=== PATIENT | female | born 1960 | race Caucasian/White ===

== ENCOUNTER 2019-11-24 14:03 | Outpatient (CLI) | payer OTHER, SELFPAY ==
--- NOTE | 2019-11-24 14:58 | MR_ITS ---
WS: [id number] MRI BRAIN WITH AND WITHOUT CONTRAST HISTORY: EPISODE OF TRANSIENT NEUROLOGIC SYMPTOMS COMPARISON: None available. TECHNIQUE: Multiplanar imaging performed through the brain with Prohance 13 ml's IV. No acute infarcts are seen. Dinh-white matter differentiation is well preserved. There are a few scat tered T2 and FLAIR signal hyperintensity from chronic ischemic disease. None of these areas enhance. No susceptibility artifacts or prior lacunar infarcts. Ventricles and extra-axial spaces are normal. Clivus and pituitary gland are normal. Small pineal cyst measures 4.4 mm in diameter. Mild enhancemen t of the wall of the pineal cyst. Visualized posterior fossa and brainstem are also normal. No masses are identified. There is a venous angioma in the RIGHT temporal lobe. Dural venous sinuses are normal. Paranasal sinuses: Well aerated with no significant disease. Mastoid air cells: Normal. Calvarium and scalp: Normal. MR/MR head wo/w con [id number] IMPRESSION: 1. Mild chronic microvascular ischemic disease. 2. 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 3. No acute infarct or hemorrhage. 4. RIGHT temporal lobe venous angioma.
== END 2019-11-24 14:04 | disposition home or self-care (01) ==
PROVIDERS: Family Provider Family Medicine; PCP Family Medicine; Visit Provider Family Medicine
DX: R29.90 Unspecified symptoms and signs involving the nervous system (principal); I99.8 Other disorder of circulatory system; D35.4 Benign neoplasm of pineal gland; Q28.3 Other malformations of cerebral vessels
CPT/HCPCS: 70553; A9579

== ENCOUNTER 2020-08-05 11:21 | Outpatient (CLI) | payer OTHER, SELFPAY ==
--- NOTE | 2020-08-05 11:30 | MM_ITS ---
WS: [id number] BILATERAL SCREENING MAMMOGRAM WITH PIERRE DISPLACEMENT VIEWS. CAD PERFORMED. HISTORY: SCREENING COMPARISON: 01/11/2012 Bilateral craniocaudal and mediolateral like views are performed. Pierre displacement views in CC and MLO projection also performed. Breasts composition: There are scattered areas of fibroglandular density. Implants are retropectoral and intact. No suspicious masses or calcifications. MM/[place] [id number] IMPRESSION: BI-RADS: 2-Benign FOLLOW-UP: 1 Year Follow-up
== END 2020-08-05 11:22 | disposition home or self-care (01) ==
LOC: RADSHAW 11:25
PROVIDERS: PCP Family Medicine; Visit Provider Plastic Surgery
DX: Z12.31 Encounter for screening mammogram for malignant neoplasm of breast (principal)
CPT/HCPCS: 77067

== ENCOUNTER → 2022-03-11 15:08 | Outpatient (BNVA) | payer OTHER, SELFPAY | PROVIDERS: PCP Family Medicine; Visit Provider Internal Medicine Cardiovascular Disease | DX: R07.89 Other chest pain (principal); R06.02 Shortness of breath; Z87.891 Personal history of nicotine dependence; Z82.49 Family history of ischemic heart disease and other diseases of the circulatory system | CPT/HCPCS: 93005; 99204 ==

== ENCOUNTER 2022-04-06 10:51 | Outpatient (CLI) | payer OTHER, SELFPAY ==
[2022-04-06 11:03] VITALS: BMI 23.3
--- NOTE | 2022-04-06 11:12 | ECG_ITS ---
[facility] Test Date: 2022-04-06 Pat Name: Emma Yee Department: Room: Gender: Female Finished Stock Inspector: Francine Roman : 1960 Requested By: Bonny Gatica Order Number: [id number] Claudia MD: Bonny Gatica M.D. Interpretive Statements NAME OF STUDY: TREADMILL STRESS ECHOCARDIOGRAM INDICATION: Chest Pain, PROCEDURE: At the baseline, the patient's blood pressure was 115/77 with a heart rate of 64. The baseline electrocardiogram showed normal sinus rhythm with normal ST-Ts. Poor R wave progression. The patient exercised for 5 minutes and 53 seconds on a standard Juan protocol. Patient attained a maximum heart rate of 145 beats per minute(90% of the maximum predicted heart rate) with a blood pressure at the peak exercise of 178/75 mm Hg. The EKG at the peak exercise revealed no significant changes. Patient did not have any chest pain or any significant EKG changes with the exercise During the recovery phase, there were no new changes. Blood pressure at the end of the recovery phase was 124/70 mm Hg with a heart rate of 78 per minute. Echocardiographic pictures were taken at the baseline, immediately following the peak exercise and during the recovery phase. CONCLUSION: 1. No significant EKG changes with the treadmill exercise 2. No exercise-induced chest pain or cardiac arrhythmia 3. Impaired exercise tolerance, attained a maximum of 7 METs 4. Please see separate report for the echocardiographic response to exercise. Electronically Signed On 04-07-2022 19:53:38 CDT by Bonny Gatica M.D. [email or web address]
--- NOTE | 2022-04-06 11:13 | USCV_ITS ---
Stress Echo Emma Yee Age: 61 Gender: F : 1960 Exam Date: 04/06/2022 12:12 Ordering Phys: Bonny Gatica MD ([email or web address]) Technologist: Polo Brody Exam Location: [facility] [place] Indication: cp Rhythm: Sinus Patient History: Chest pain Cardiac Medications: NONE Medications in past 24 hours: Contrast: Stress Results Protocol: Juan Total dose(mL): Exercise Duration (min:sec): 5:50 METS: 7 Resting HR: 60 Resting BP: 115 / 77 Peak HR: 145 Peak BP: 185 / 88 Max Predicted HR: 160 91 % Max Predicted HR Target HR: 136 Double Product: 34484 Stress Summary: The patient's target heart rate was achieved BP Response: Normal Reason for Termination: Maximal effort/unable to continue Cardiac Symptoms: None ECG Analysis Resting ECG: Please see separate report Stress ECG: Please see separate report Arrhythmia: Please see separate report MEASUREMENTS (Male/Female) Normal Values FINDINGS The baseline echocardiogram revealing normal LV size and ejection fraction 55%. Segmental wall motion analysis revealing no gross wall motion normalities. The left atrium appears to be mildly dilated. No pericardial effusion. At the peak exercise, there was good augmentation of all the segments with no exercise-induced wall motion normalities. During the recovery, the echocardiogram findings were back to the baseline CONCLUSIONS 1. Normal echocardiographic response to exercise 2. No significant coronary ischemia, based on the above findings Dr Bonny Gatica MD [facility] (Electronically Signed) Final Date: 07 April 2022 07:55 S
[2022-04-06 12:28] VITALS: BP 124/70; PULSE 78
== END 2022-04-06 10:52 | disposition home or self-care (01) ==
LOC: CDL 10:53
PROVIDERS: PCP Family Medicine; Visit Provider Internal Medicine Cardiovascular Disease
DX: R06.02 Shortness of breath (principal); R07.9 Chest pain, unspecified
CPT/HCPCS: 93017; 93350